=== PATIENT | female | born 1980 | race Caucasian/White ===

== ENCOUNTER 2020-12-04 23:11 | Emergency (ER) | payer OTHER ==
[~2020-12-04] VITALS: Ht 165.1 cm; Wt 79.4 kg
[2020-12-04 23:53] VITALS: BP 143/80
--- NOTE | 2020-12-04 23:56 | NUR ---
TO LOBBY A/W BED AMBULTORY
--- NOTE | 2020-12-05 03:05 | NUR ---
SEEN AND EXAMINED BY CINDY , WITH ORDERS, CARRIED OUT
[2020-12-05] MEDS ORDERED: AMOXIL/CLAVULANATE 875/125 MG 1 TAB PO ONE (03:10)
[2020-12-05] MEDS ORDERED: IBUP-2213 PO (03:10)
[2020-12-05] MEDS ORDERED: AMOX-1000 PO (03:10)
[2020-12-05] MEDS ORDERED: ACETAMINOPHEN 325 MG TAB PO ONE (03:10)
[2020-12-05] MEDS ORDERED: DEXAMETHASONE 4 MG/ML VIAL PO ONE (03:10)
--- NOTE | 2020-12-05 03:10 | NUR ---
SWAB FOR NOVEL SENT TO LAB
--- NOTE | 2020-12-05 03:20 | NUR ---
MEDICATED PER [facility] ORDER, TOLERATED WELL.
[2020-12-05 03:40] VITALS: BP 122/79
--- NOTE | 2020-12-05 03:40 | NUR ---
Patient discharged with v/s stable. Written and verbal after care instructions given and explained. Patient alert, oriented and verbalized understanding of instructions. Ambulatory with steady gait. All questions addressed prior to discharge. ID band removed. Patient advised to follow up with PMD. Rx of MOTRIN, AUGMENTIN given. Patient educated on indication of medication including possible reaction and side effects. Opportunity to ask questions provided and answered.
== END 2020-12-05 03:40 | disposition home or self-care (01) ==
LOC: MED 23:11
DX: H66.92 Otitis media, unspecified, left ear (principal); Z20.822 Contact with and (suspected) exposure to COVID-19
CPT/HCPCS: 99284; J1100; U0003